=== PATIENT | female | born 1980 | race Two or more races ===

== ENCOUNTER 2024-10-01 09:19 | Outpatient (AMB) | payer MEDICAID, SELFPAY ==
[2024-10-01 09:31] VITALS: BP 126/84; PULSE 72; RESP 19; TEMP 36.6; O2SAT 96; BMI 32.6
--- NOTE | 2024-10-01 09:31 | GSCOFFNT_ITS ---
Vital Signs - [facility] 10/01/24 09:31 Height 1.65 m Height Method Stated Weight 89.074 kg Weight Measurement Method Standing Scale BMI 32.6 BP 126/84 Blood Pressure Source Automatic Cuff Blood Pressure Location Left Upper Arm Position Sitting Respiration 19 Pulse 72 Pulse Source Monitor Temp 97.8 F Temp Source Temporal Artery Scan Pulse Oximetry (%) 96 Oxygen Delivery Method Room Air Med/Allergies Allergies & Medications Allergies No Known Allergies Allergy (Verified 10/01/24 09:43) Medication Reconciliation amlodipine 2.5 mg tablet 2.5 mg PO QDAY 10/01/24 [History Confirmed 10/01/24] ergocalciferol (vitamin D2) 400 unit capsule 1,250 mcg PO QWEEK 10/01/24 [History Confirmed 10/01/24] lisinopril 2.5 mg tablet 2.5 mg PO QDAY 10/01/24 [History Confirmed 10/01/24] paroxetine HCl 10 mg tablet 10 mg PO QDAY 10/01/24 [History Confirmed 10/01/24] MA Intake Visit Data Collection New Patient or Established: New Patient (never been to [facility]) Seen by Clinical Staff ONLY (RN/MA): No Reason for Visit:: REFERRAL COLONOSCOPY Pain Present Currently: No Director Of Business Development Required: Yes PCP or OBGYN visit in last 3 months: Yes Hx Now: No Do You Feel Safe at Home: Yes Authorities Contacted: N/A Smoking Status Smoking Status: Never smoker Immunization / Flu Flu Vaccine in the Last 12 Months: No Flu Vaccine Exclusion Criteria: Refused by Patient Past Medical History Past Medical History NEUROLOGIC: Negative Neurological Disorders or Seizures CARDIAC: Positive Cardiac Disorders and Hypertension; Negative Congestive Heart Failure RESPIRATORY: Negative Chronic Obstructive Pulmonary Disease (COPD) GASTROINTESTINAL: Positive Gastrointestinal Disorders, Gall Bladder Disease and Obesity; Negative Hepatitis GENITOURINARY: Negative Genitourinary Disorders or Renal Disease REPRODUCTIVE: Positive Previous Pregnancies (); Negative Pelvic Inflammatory Disease ENDOCRINE: Negative Endocrine Disorders, Diabetes Mellitus Type 1 or Diabetes Mellitus Type 2 HEMATOLOGIC: Negative Blood Disorders PSYCHO/SOCIAL: Positive Anxiety OTHER HISTORY: Positive Hospitalization (surgery) and Chicken Pox; Negative Autoimmune Disease, Shingles, Falls, Blood Transfusions, Blood Transfusion Reaction, Anesthesia Reactions, MRSA or Cancer Family History FAMILY HISTORY: Positive Family Cardiac Disorders (MOTHER (HTN)) and Family Surgery; Negative Family Psychiatric Problems, Family Respiratory Disorders, Family Gastrointestinal Problems, Family Cancer or Family Anesthesia Reaction Surgical History SURGICAL: Positive Ear Surgery (tympanoplasty left); Negative Joint Replacement Social History SMOKING STATUS: Smoking status: Never smoker ALCOHOL: Alcohol Intake: Never HOUSING: Housing: House LIVES WITH: Lives With: Children, Family and Spouse Past Medical History Comments PMH COMMENT: PREVIOUS COLONOSCOPY 1 YEAR AGO- FINDING POLYS AND HEMORRHOIDS WILL BE REQUESTING RECORDS HPI HPI Narrative Spoke to pt with in-person paver operator 44F referred for colonoscopy due to family history. Pt states her father was diagnosed with colon CA at the age of 50, and that she herself had a colonoscopy in [place] one year ago. Pt was told she had polyps but was not informed when she should have her next surveillance colonoscopy. She has noted that in the last three months she has abdominal discomfort, occasional pencil thin stools and unintentional weight loss. She denies any blood in her stool and also states that she is going through menopause so attributes some of her discomfort to that PMH: HTN, anxiety, vitamin D PSHx: Cholecystectomy, umbilical hernia repair, bladder lift Meds: No antiplt or anticoagulation Allergies: NKDA Family: father diagnosed with colon CA age 50, pt states he also has stomach CA ROS Review of Systems Systems Reviewed: All systems reviewed, normal except as documented Objective/Exam General General Appearance: alert, cooperative and well groomed Resp Respiratory exam: Absent respiratory distress Assessment & Plan Diagnosis / Problem List (1) Encounter for colonoscopy in patient with family history of colon cancer: Status: Acute Assessment & Plan: 44F with father diagnosed with colon CA at age 50 referred for colonoscopy. I asked pt to have her colonoscopy and pathology reports faxed to determine the optimal timing for her next surveillance colonoscopy. I explained prep, sedation and benefits/risks of procedure including bleeding, the potential of needing to abort prematurely for safety as well as the risk of perforation requiring emergency surgery. All questions were answered and pt expressed understanding Office Procedures GNS Level of Care Nursing/Assessment Patient Status: Initial/New Patient Nursing Assessment/Reassesment: Medication Reconciliation, Update PMH in EMR and Vital Signs Coordination of Care: Complex Care and Chronic Disease 1-5, Consent,records obtained, informed consent, Education Simp Pt/Fam, 1 Ins Authorization, Results/Orders obtained and Staff clarify orders Special Needs: Language special needs New Patient Charge New Patient Point Assignment: 1104 New Patient Point Charge: [employer] SUPERINTENDENT Level 3 ([id number]) Patient Portal Questionaires Social History Living Situation History Housing: House Housing Other:: Lives with Tobacco History Smoking Status: Never smoker Alcohol History Alcohol Intake: Never Domestic Abuse History Do You Feel Safe at Home: Yes Review of Systems Report any current symptoms Only answer those that you have currently: Past Medical History Past Medical History Have you ever been diagnosed with any of the following: Neurological Problems Seizures: No Cardiology Problems Congestive Heart Failure: No Hypertension: Yes Respiratory Problems Chronic Obstructive Pulmonary Disease (COPD): No Stomache/Intestinal Problems Hepatitis: No Gall Bladder Disease: Yes Obesity: Yes Genital/Urinary Problems Renal Disease: No Reproductive Problems Pelvic Inflammatory Disease: No Previous Pregnancies: Yes () Endocrine Problems Diabetes Mellitus Type 1: No Diabetes Mellitus Type 2: No Psychologic Problems Anxiety: Yes Other Problems Hospitalization: Yes (surgery) Autoimmune Disease: No Shingles: No Falls: No Blood Transfusions: No Blood Transfusion Reaction: No Anesthesia Reactions: No MRSA: No Chicken Pox: Yes Cancer: No
== END 2024-10-01 09:43 | disposition home or self-care (01) ==
LOC: HODSRG 09:19
PROVIDERS: PCP Family Medicine; Referring Provider Family Medicine; Supervising Provider Surgery; Visit Provider Surgery
DX: Z12.11 Encounter for screening for malignant neoplasm of colon (principal); Z80.0 Family history of malignant neoplasm of digestive organs; I10 Essential (primary) hypertension
CPT/HCPCS: 99203; G0463